=== PATIENT | female | born 1980 | race American Indian/Alaskan Native ===

== ENCOUNTER 2017-01-16 11:38 | Emergency (ER) | payer SELFPAY ==
[2017-01-16 12:20] LABS: Basophils % (Auto) 0.8 % (0.0-1.8); Eosinophils % (Auto) 2.7 % (0.0-4.3); Hematocrit 38.2 % (30.3-42.9); Hemoglobin 12.1 gm/dl (10.1-14.3); Mean Corpuscular HGB Conc 32 % (30-34); Mean Corpuscular Volume 80 fl (79-97); Platelet Count 287 K/mm3 (140-440); Red Blood Count 4.78 M/mm3 (3.65-5.03); Red Cell Distribution Width 16.6 % (13.2-15.2); White Blood Count 6.9 K/mm3 (4.5-11.0)
[2017-01-16 12:34] LABS: Mean Corpuscular Hemoglobin 25 pg (28-32)
[2017-01-16 12:36] LABS: Alanine Aminotransferase 14 units/L (7-56); Albumin 4.3 g/dL (3.9-5); Albumin/Globulin Ratio 1.3 %; Alkaline Phosphatase 77 units/L (35-129); Anion Gap 18 mmol/L; Bilirubin,Total < 0.20 mg/dL (0.1-1.2); Blood Urea Nitrogen 8 mg/dL (7-17); Carbon Dioxide 22 mmol/L (22-30); Chloride 104.3 mmol/L (98-107); Glucose 105 mg/dL (65-100); Lipase 37 units/L (13-60); Potassium 4.3 mmol/L (3.6-5.0); Sodium 140 mmol/L (137-145); Total Protein 7.5 g/dL (6.3-8.2)
[2017-01-16 13:53] LABS: Bilirubin,Urine NEG (Negative); Blood,Urine MOD (Negative); Ketones,Urine NEG (Negative); Leukocyte Esterase,Urine TR (Negative); Mucus,Urine 2+ /HPF; Nitrite,Urine NEG (Negative); Protein,Urine <15 mg/dL mg/dL (Negative); Urobilinogen,Urine < 2.0 mg/dL (<2.0)
[2017-01-16 17:44] VITALS: BP 135/119
== END 2017-01-16 20:45 | disposition left against medical advice (07) ==
LOC: ED 11:38
DX: R10.32 Left lower quadrant pain (principal); Z53.21 Procedure and treatment not carried out due to patient leaving prior to being seen by health care provider
CPT/HCPCS: 36415; 80053; 81001; 81025; 83690; 85025

== ENCOUNTER 2017-01-19 09:15 | Emergency (ER) | payer SELFPAY ==
[2017-01-19 09:21] VITALS: BP 147/124
[2017-01-19 10:44] LABS: Basophils % (Auto) 0.7 % (0.0-1.8); Eosinophils % (Auto) 2.6 % (0.0-4.3); Hematocrit 38.8 % (30.3-42.9); Hemoglobin 12.2 gm/dl (10.1-14.3); Mean Corpuscular HGB Conc 32 % (30-34); Mean Corpuscular Volume 81 fl (79-97); Platelet Count 285 K/mm3 (140-440); Red Cell Distribution Width 16.8 % (13.2-15.2); White Blood Count 7.6 K/mm3 (4.5-11.0)
[2017-01-19 10:46] LABS: Mean Corpuscular Hemoglobin 26 pg (28-32)
[2017-01-19 11:01] LABS: Alanine Aminotransferase 14 units/L (7-56); Albumin 4.5 g/dL (3.9-5); Albumin/Globulin Ratio 1.4 %; Alkaline Phosphatase 80 units/L (35-129); Anion Gap 17 mmol/L; Blood Urea Nitrogen 8 mg/dL (7-17); Carbon Dioxide 24 mmol/L (22-30); Chloride 102.8 mmol/L (98-107); Glucose 99 mg/dL (65-100); Lipase 38 units/L (13-60); Sodium 140 mmol/L (137-145); Total Protein 7.8 g/dL (6.3-8.2)
--- NOTE | 2017-01-21 07:39 | ED Elopement Review ---
ED Pt Elopement review - Results review Lab results: Laboratory Tests 01/19/17 01/19/17 01/19/17 10:23 10:23 10:23 WBC 7.6 RBC 4.80 Hgb 12.2 Hct 38.8 MCV 81 MCH 26 L MCHC 32 RDW 16.8 H Plt Count 285 Lymph % (Auto) 20.7 [place] % (Auto) 7.3 Eos % (Auto) 2.6 Baso % (Auto) 0.7 Lymph # 1.6 [place] # 0.6 Eos # 0.2 Baso # 0.1 Seg Neutrophils % 68.7 Seg Neutrophils # 5.2 Sodium 140 Potassium 4.0 Chloride 102.8 Carbon Dioxide 24 Anion Gap 17 BUN 8 Creatinine 0.8 Estimated GFR > 60 BUN/Creatinine Ratio 10.00 Glucose 99 Calcium 9.0 Total Bilirubin 0.20 AST 17 ALT 14 Alkaline Phosphatase 80 Total Protein 7.8 Albumin 4.5 Albumin/Globulin Ratio 1.4 Lipase 38 HCG, Qual Negative - Call Back decision Pt Call Back Decision: No action required
== END 2017-01-19 10:35 | disposition left against medical advice (07) ==
LOC: ED 09:15
DX: R10.9 Unspecified abdominal pain (principal); Z53.21 Procedure and treatment not carried out due to patient leaving prior to being seen by health care provider
CPT/HCPCS: 36415; 80053; 83690; 84703; 85025

== ENCOUNTER 2017-07-23 09:25 | Emergency (ER) | payer MEDICAID, OTHER ==
[2017-07-23 09:57] LABS: Basophils % (Auto) 0.7 % (0.0-1.8); Eosinophils % (Auto) 3.6 % (0.0-4.3); Hematocrit 36.2 % (30.3-42.9); Hemoglobin 11.9 gm/dl (10.1-14.3); Mean Corpuscular HGB Conc 33 % (30-34); Mean Corpuscular Volume 79 fl (79-97); Platelet Count 259 K/mm3 (140-440); Red Blood Count 4.58 M/mm3 (3.65-5.03); Red Cell Distribution Width 19.5 % (13.2-15.2); White Blood Count 6.5 K/mm3 (4.5-11.0)
[2017-07-23 09:59] LABS: Mean Corpuscular Hemoglobin 26 pg (28-32)
[2017-07-23 12:26] LABS: Bilirubin,Urine NEG (Negative); Blood,Urine LG (Negative); Ketones,Urine NEG (Negative); Leukocyte Esterase,Urine NEG (Negative); Mucus,Urine FEW /HPF; Nitrite,Urine NEG (Negative); Urobilinogen,Urine < 2.0 mg/dL (<2.0)
--- NOTE | 2017-07-23 13:29 | Ultrasound Report ---
FINAL REPORT PROCEDURE: US OB < = 14 WEEKS FETUS TECHNIQUE: Real-time transabdominal sonography of the uterus, placenta, amniotic fluid, adnexa, and fetus was performed with image documentation. Measurements were obtained to determine age/size. M-mode Doppler was used to document heartbeat. CPT 25727 HISTORY: Vaginal bleeding during COMPARISON: None FINDINGS: The uterus measures 13.7 x 8.8 x 10.2 centimeters. There is an intrauterine gestation. BPD, femur length, and crown-rump length measurements together suggests an expected gestational age of 13 weeks 0 days. heart rate of 158 beats per minute was noted. There is no free fluid or subchorionic hemorrhage. The right ovary measured 4.2 x 2.5 x 3.3 centimeters and the left ovary measured 4.0 x 2.4 x 3.4 centimeters. Complex cyst of the right ovary 2.1 x 1.3 x 1.8 centimeters is present as well as of the left ovary 1.6 x 1.9 x 1.5 centimeters. There is normal blood flow to both ovaries. Amniotic fluid volume appears appropriate. IMPRESSION: Single live intrauterine gestation at approximately 13 weeks 0 days. EDC by US 01/28/2018. Benign appearing cysts of both ovaries.
[2017-07-23 13:58] VITALS: BP 113/75
== END 2017-07-23 15:56 | disposition left against medical advice (07) ==
LOC: ED 09:25
DX: O20.9 Hemorrhage in early pregnancy, unspecified (principal); Z3A.12 12 weeks gestation of pregnancy; Z53.21 Procedure and treatment not carried out due to patient leaving prior to being seen by health care provider
CPT/HCPCS: 36415; 76801; 81001; 81025; 84702; 85025; 86850; 86900; 86901

== ENCOUNTER 2018-01-16 11:01 | Outpatient (CLI) | payer OTHER ==
[2018-01-16 11:20] VITALS: BP 130/85
[2018-01-16] MEDS ORDERED: LACTATED RINGERS 1,000 ML IV SCH (12:00)
== END 2018-01-16 13:00 | disposition home or self-care (01) ==
LOC: TRG 11:01
PROVIDERS: ATTEND Obstetrics & Gynecology
DX: O09.523 Supervision of elderly multigravida, third trimester (principal); O47.1 False labor at or after 37 completed weeks of gestation; Z3A.37 37 weeks gestation of pregnancy

== ENCOUNTER 2018-01-30 00:38 | Outpatient (CLI) | payer OTHER ==
[2018-01-30 00:58] VITALS: BP 145/88
== END 2018-01-30 03:45 | disposition home or self-care (01) ==
LOC: TRG 00:38
PROVIDERS: ATTEND Obstetrics & Gynecology
DX: O47.1 False labor at or after 37 completed weeks of gestation (principal); Z3A.39 39 weeks gestation of pregnancy; Z87.891 Personal history of nicotine dependence
CPT/HCPCS: 59025

== ENCOUNTER 2018-02-03 10:03 | Inpatient (IN) | payer OTHER ==
[2018-02-03] MEDS ORDERED: MINERAL OIL PO PRN (11:09)
[2018-02-03] MEDS ORDERED: STADOL IV PRN (11:09)
[2018-02-03] MEDS ORDERED: ePHEDrine SULFATE IV PRN (11:09)
[2018-02-03] MEDS ORDERED: POLYCILLIN/NS 2 GM/100 ML 2 GM/100 ML BAG IV ONE (11:09)
[2018-02-03] MEDS ORDERED: BRETHINE SUB-Q PRN (11:09)
[2018-02-03] MEDS ORDERED: BRETHINE IVP PRN (11:09)
[2018-02-03] MEDS ORDERED: SUBLIMAZE IV PRN (11:09)
[2018-02-03] MEDS ORDERED: XYLOCAINE 2% INFILTRATI ONE (11:09)
[2018-02-03] MEDS ORDERED: PITOCin/NS 30 UNIT/500ML 30 UNITS/500 ML BAG IV SCH ×2 (12:00)
[2018-02-03] MEDS ORDERED: PITOCin/NS 20 UNIT/1000ML DRIP 20 UNITS/1,000 ML BAG IV SCH ×2 (12:00→22:48)
[2018-02-03] MEDS ORDERED: LACTATED RINGERS 1,000 ML IV SCH (12:00)
--- NOTE | 2018-02-03 13:02 | History and Physical Report ---
History of Present Illness Date of examination: 02/03/18 Date of admission: 02/03/18 10:03 History of present illness: 37 yo LMP 02/04/18 @ 39.6 weeks gestation, presented to office advanced cervical dilatation and SROM. Entry into care at 13 weeks gestation. course complicated by AMA with APA comang't, HSV2 with Valtrex at 35 weeks, Circumvallate placenta with AMFM coman't and GBS carrier. 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 Family/Genetic History: diabetes, hypertension Social history: no significant social history, single - Obstetrical History Expected Date of Delivery: 02/04/18 Actual Gestation: 39 Week(s) 6 Day(s) : 8 Para: 6 Hx # Term Pregnancies: 6 Spontaneous Abortions: 2 Number of Living Children: 6 Medications and Allergies Allergies Allergy/AdvReac Type Severity Reaction Status Date / Time No Known Allergies Allergy Verified 07/23/17 09:37 Home Medications Medication Instructions Recorded Confirmed Last Taken Type No Known Home Medications [No 07/23/17 02/03/18 Unknown History Reported Home Medications] Active Meds: Active Medications Butorphanol Tartrate (Stadol) 2 mg IV Q2H PRN PRN Reason: Pain , Severe (7-10) Ephedrine Sulfate (Ephedrine Sulfate) 10 mg IV Q2M PRN PRN Reason: Hypotension Fentanyl (Sublimaze) 100 mcg IV Q2H PRN PRN Reason: Labor Pain Lactated Ringer's (Lactated Ringers) 1,000 mls @ 125 mls/hr IV DIRECT SUMI Oxytocin/Sodium Chloride (Pitocin/Ns 20 Unit/1000ml Drip) 20 units in 1,000 mls @ 125 mls/hr IV DIRECT SUMI Oxytocin/Sodium Chloride (Pitocin/Ns 30 Unit/500ml) 30 units in 500 mls @ 4 mls /hr IV TITR SUMI; Protocol Oxytocin/Sodium Chloride (Pitocin/Ns 30 Unit/500ml) 30 units in 500 mls @ 1 mls /hr IV TITR SUMI; Protocol Mineral Oil (Mineral Oil) 30 ml PO QHS PRN PRN Reason: Constipation Terbutaline Sulfate (Brethine) 0.25 mg SUB-Q ONCE PRN PRN Reason: Hyperstimulation/Hypertonicity Terbutaline Sulfate (Brethine) 0.25 mg IVP ONCE PRN PRN Reason: Hyperstimulation/Hypertonicity Review of Systems All systems: negative Breasts: deferred Genitourinary: normal appearance, leakage of fluid, contractions, no vaginal bleeding, no genital sores - Vital Signs Vital signs: Vital Signs Temp Resp 98.1 F 02/03/18 11:30 02/03/18 11:30 Temp Pulse Resp BP Pulse Ox 98.1 F 02/03/18 11:30 02/03/18 11:30 - Obstetrical FHR: category 1 Uterine Contraction Monitor Mode: External Cervical Dilatation: 3 Cervical Effacement Percentage: 60 station: -2 Uterine Contraction Pattern: Regular Uterine Tone Measurement Phase: Resting Uterine Contraction Intensity: Mild Results Result Diagrams: 02/03/18 10:55 All other labs normal. Assessment and Plan A: IUP at 38.6 weeks gestation PPROM at term GBS positive Anemia P: Abx Active induction
[2018-02-03 13:38] LABS: Hematocrit 28.1 % (30.3-42.9); Hemoglobin 8.9 gm/dl (10.1-14.3); Mean Corpuscular HGB Conc 32 % (30-34); Platelet Count 266 K/mm3 (140-440); Red Blood Count 4.24 M/mm3 (3.65-5.03)
[2018-02-03 13:39] LABS: Mean Corpuscular Hemoglobin 21 pg (28-32); Mean Corpuscular Volume 66 fl (79-97)
[2018-02-03] MEDS ORDERED: AMPICILLIN/NS 1 GM/50 ML 1 GM/50 ML BAG IV SCH (18:00)
--- NOTE | 2018-02-03 18:59 | Event Note ---
Date: 02/03/18 Pt very uncomfortable with contractions. Irregular contraction pattern. SVE: /-3. Continue pitocin augmentation. Closely monitor clinical status.
--- NOTE | 2018-02-03 21:09 | Procedure Note ---
OB Delivery Note - Delivery Date of Delivery: 02/03/18 Surgeon: NICKOLAS FELIX Estimated blood loss: 300cc - Vaginal Delivery presentation: vertex Delivery position: OA Intrapartum events: PROM->1hr before delivery, meconium, mult.variable deceleratio Delivery induction: none Delivery augmentation: pitocin Delivery monitor: external FHT, external uterine Route of delivery: Delivery placenta: spontaneous Delivery cord: nuchal cord, 3 umbilical vessels Episiotomy: none Delivery laceration: other (Perineal abrasions ) Anesthesia: intravenous Delivery comments: Pt progressed to complete/complete/0 and pushed to deliver a viable male over intact perineum via under IV anesthesia. Head delivered in WILLY position. Nuchal cord x 1 delivered through. Shoulders and body delivered without difficulty. Terminal meconium. placed on maternal abdomen and bulb suctioned. Cord clamped and cut and handed to RN in attendance. Placenta delivered spontaneously (3VC). Vagina and perineum explored. Vaginal abrasions noted to be hemostatic. EBL 300mL. - A at 1 minute: 8 at 5 minutes: 9 Infant Gender: Male (3656g (8lb 1 oz) @ 2044 pm)
[2018-02-03] MEDS ORDERED: MOTRIN PO ONE ×2 (21:30→21:39)
[2018-02-03] MEDS ORDERED: TUCKS PAD TP PRN (22:48)
[2018-02-03] MEDS ORDERED: PHENERGAN PR PRN (22:48)
[2018-02-03] MEDS ORDERED: LANSINOH TP PRN ×2 (22:48)
[2018-02-03] MEDS ORDERED: PHENERGAN PO PRN (22:48)
[2018-02-03] MEDS ORDERED: BENADRYL PO PRN (22:48)
[2018-02-03] MEDS ORDERED: ZOFRAN IV PRN (22:48)
[2018-02-03] MEDS ORDERED: DERMOPLAST TP PRN (22:48)
[2018-02-03] MEDS ORDERED: DULCOLAX PR PRN (22:48)
[2018-02-03] MEDS ORDERED: TYLENOL PO PRN (22:48)
[2018-02-03] MEDS ORDERED: NORCO 5/325 PO PRN (22:48)
[2018-02-03] MEDS ORDERED: SODIUM CHLORIDE FLUSH SYRINGE 10 ML IV NR (22:48)
[2018-02-03] MEDS ORDERED: MILK OF MAGNESIA PO PRN (22:48)
[2018-02-04] MEDS ORDERED: MOTRIN PO SCH
[2018-02-04] MEDS: FEOSOL PO SCH ×3 (00:17→22:03)
[2018-02-04] MEDS ORDERED: M-M-R II VACCINE SUB-Q ONE (06:00)
[2018-02-04] MEDS ORDERED: BOOSTRIX IM ONE (06:00)
[2018-02-04 09:06] LABS: Hematocrit 27.1 % (30.3-42.9); Hemoglobin 8.6 gm/dl (10.1-14.3)
--- NOTE | 2018-02-04 10:37 | Progress Note ---
Assessment and Plan A: ~12 hrs s/p at term, Chronic anemia P: Continue routine care. Subjective - Subjective Date of service: 02/04/18 Principal diagnosis: s/p at term Interval history: Pt has no complaints presently. Patient reports: appetite normal, voiding normally, pain well controlled, ambulating normally [place]: doing well Objective - Vital Signs Latest vital signs: Vital Signs Temp Pulse Resp BP Pulse Ox 02/04/18 08:00 98.3 F 89 18 129/84 97 02/04/18 04:15 98.2 F 83 20 120/78 02/04/18 01:10 98.2 F 96 H 20 117/79 02/03/18 21:38 97 H 20 120/68 02/03/18 21:21 108 H 20 115/65 02/03/18 21:12 98.0 F 110 H 20 129/72 02/03/18 19:14 97.2 F L 107 H 20 130/95 02/03/18 15:38 98.4 F 16 02/03/18 11:30 98.1 F 16 Intake and Output 02/03/18 02/04/18 02/04/18 22:59 06:59 14:59 Intake Total 390 300 Output Total 600 1000 Balance -210 -700 Intake: IV 30 PITOCin/NS 30 UNIT/500ML 30 30 units In 500 ml @ 4 mls/hr IV TITR SUMI Rx#: [id number] Oral 360 300 Output: Urine 600 1000 Void 600 1000 Other: Total, Intake Amount 360 100 Total, Output Amount 600 400 Estimated Blood Loss 300 - Exam Breasts: Present: deferred Cardiovascular: Present: Regular rate Lungs: Present: Clear to auscultation Abdomen: Present: soft (obese ) Uterus: Present: fundal height at umbilicus Extremities: Present: normal - Labs Labs: Abnormal lab results 02/03/18 02/04/18 Range/Units 10:55 08:48 Hgb 8.9 L 8.6 L (10.1-14.3) gm/dl Hct 28.1 L 27.1 L (30.3-42.9) % MCV 66 L (79-97) fl MCH 21 L (28-32) pg RDW 17.0 H (13.2-15.2) %
[2018-02-04] MEDS: MOTRIN PO SCH ×2 (13:45→22:04)
[2018-02-04 20:04] LABS: Hematocrit 27.4 % (30.3-42.9); Hemoglobin 8.8 gm/dl (10.1-14.3); Mean Corpuscular HGB Conc 32 % (30-34); Platelet Count 273 K/mm3 (140-440); Red Blood Count 4.15 M/mm3 (3.65-5.03); Red Cell Distribution Width 16.8 % (13.2-15.2)
[2018-02-04 20:05] LABS: Mean Corpuscular Hemoglobin 21 pg (28-32); Mean Corpuscular Volume 66 fl (79-97)
[2018-02-04 20:31] LABS: Alanine Aminotransferase 12 units/L (7-56); Uric Acid 3.6 mg/dL (3.5-7.6)
[2018-02-04 20:56] LABS: Bilirubin,Urine NEG (Negative); Blood,Urine LG (Negative); Color,Urine Yellow (Yellow); Mucus,Urine FEW /HPF; Urobilinogen,Urine < 2.0 mg/dL (<2.0)
[2018-02-04 20:58] LABS: RBC,Urine > 182.0 /HPF (0.0-6.0)
[2018-02-05] MEDS ORDERED: NORMODYNE PO SCH (11:00)
[2018-02-05 11:20] VITALS: BP 130/78
--- NOTE | 2018-02-05 14:03 | Progress Note ---
Assessment and Plan o; Mildly elevated earlier, NL now A: stable PP Day 1 P: D/c home Subjective - Subjective Date of service: 02/05/18 Principal diagnosis: s/p at term Interval history: 37 yo LMP 02/04/18 @ 39.6 weeks gestation, presented to office advanced cervical dilatation and SROM. Entry into care at 13 weeks gestation. course complicated by AMA with APA comang't, HSV2 with Valtrex at 35 weeks, Circumvallate placenta with AMFM coman't and GBS carrier. Patient reports: appetite normal, voiding normally, pain well controlled, flatus , ambulating normally, other (denies PIH S&S. Concenrned about right eye of not opening) [place]: doing well, nursing well Objective - Vital Signs Latest vital signs: Vital Signs Temp Pulse Resp BP BP Pulse Ox 02/05/18 09:10 98.0 F 89 18 130/78 99 02/05/18 00:00 98.6 F 78 18 104/68 02/04/18 18:42 143/94 02/04/18 17:36 98.1 F 86 18 148/95 148/95 98 Intake and Output 02/04/18 02/05/18 02/05/18 22:59 06:59 14:59 Intake Total 240 Balance 240 Intake: Oral 240 Other: Total, Intake Amount 240 # Voids Void 1 - Exam Breasts: Present: deferred Abdomen: Present: normal appearance. Absent: distention, tenderness Uterus: Present: normal, firm, fundal height below umbilicus. Absent: bogginess , tenderness Extremities: Present: normal - Labs Labs: Abnormal lab results 02/04/18 02/04/18 02/04/18 Range/Units 19:48 19:48 20:17 Hgb 8.8 L (10.1-14.3) gm/dl Hct 27.4 L (30.3-42.9) % MCV 66 L (79-97) fl MCH 21 L (28-32) pg RDW 16.8 H (13.2-15.2) % Creatinine 0.6 L (0.7-1.2) mg/dL Lactate Dehydrogenase 236 H (91-180) units/L Urine WBC (Auto) 28.0 H (0.0-6.0) /HPF
--- NOTE | 2018-02-05 14:05 | Discharge Summary ---
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] Routine Reason For Exam: assistance with , SNS Primary care physician: NICKOLAS FELIX Hospitalization Reason for admission: active labor, IUP at term Delivery: Episiotomy: none Laceration: none Other procedures: none Discharge diagnosis: IUP at term delivered [place] baby: male Condition at discharge: Good Disposition: DC-01 TO HOME OR SELFCARE Plan - Discharge Medications Prescriptions: Docusate Sodium [Colace] 100 mg PO BID PRN #60 capsule PRN Reason: Constipation Ferrous Sulfate [Feosol 325 MG tab] 325 mg PO TID #90 tablet HYDROcodone/ACETAMINOPHEN [[place] 5-325 Tablet] 1 each PO Q6H PRN #20 tablet PRN Reason: Pain Ibuprofen [Motrin] 800 mg PO Q8HR PRN #30 tablet PRN Reason: Pain - Provider Discharge Summary Activity: routine, no sex for 6 weeks, no heavy lifting 4 weeks, no strenuous exercise Diet: routine Instructions: routine Additional instructions: [] Smoking cessation referral if applicable(refer to patient education folder for contact #) [] Refer to [facility]'s [facility] Booklet Call your doctor immediately for: * Fever > 100.5 * Heavy vaginal bleeding ( >1 pad per hour) * Severe persistent headache * Shortness of breath * Reddened, hot, painful area to leg or breast * Drainage or odor from incision. * Keep incision clean and dry at all times and follow doctor's instructions regarding bathing/showering - Follow up plan Follow up: NICKOLAS FELIX MD [Primary Care Provider] - 7 Days (RTO 1 one week BP check and circumcision)
[2018-02-05] MEDS ORDERED: DEPO-PROVERA (CONTRACEPTION) IM ONE (16:00)
== END 2018-02-05 16:05 | disposition home or self-care (01) | DRG 774 ==
LOC: LD 10:03 → OB 22:23
PROVIDERS: ADMIT Obstetrics & Gynecology; ATTEND Obstetrics & Gynecology
PROC: 10E0XZZ Delivery of Products of Conception, External Approach (ICD-10-PCS; principal; 2018-02-03)
PROC: 3E0234Z Introduction of Serum, Toxoid and Vaccine into Muscle, Percutaneous Approach (ICD-10-PCS; 2018-02-04)
DX: O99.824 Streptococcus B carrier state complicating childbirth (principal); O98.52 Other viral diseases complicating childbirth; O99.02 Anemia complicating childbirth; D64.9 Anemia, unspecified; O77.0 Labor and delivery complicated by meconium in amniotic fluid; O69.81X0 Labor and delivery complicated by cord around neck, without compression, not applicable or unspecified; O71.82 Other specified trauma to perineum and vulva; O76 Abnormality in fetal heart rate and rhythm complicating labor and delivery; O42.02 Full-term premature rupture of membranes, onset of labor within 24 hours of rupture; Z23 Encounter for immunization; Z37.0 Single live birth; Z3A.39 39 weeks gestation of pregnancy; Z90.49 Acquired absence of other specified parts of digestive tract; Z83.3 Family history of diabetes mellitus; Z82.49 Family history of ischemic heart disease and other diseases of the circulatory system; B00.9 Herpesviral infection, unspecified
CPT/HCPCS: 36415; 81001; 82565; 83615; 84450; 84460; 84550; 85014; 85018; 85027; 86592; 86850; 86900; 86901; 99211; G0463; J0290; J0595; J1050; J2590; J3010; J7120; Q0169

== ENCOUNTER 2019-06-21 23:30 | Inpatient (IN) | payer OTHER ==
[2019-06-22] MEDS ORDERED: LACTATED RINGERS 1,000 ML IV SCH (01:00)
[2019-06-22] MEDS ORDERED: CALCIUM GLUCONATE IV ONE (01:15)
[2019-06-22] MEDS: APRESOLINE IV PRN ×2 (01:32→02:09)
[2019-06-22] MEDS: LACTATED RINGERS 1,000 ML IV SCH ×2 (01:32→03:26)
[2019-06-22 02:04] LABS: Alanine Aminotransferase 13 units/L (7-56)
[2019-06-22 02:32] LABS: Hematocrit 31.8 % (30.3-42.9); Hemoglobin 10.5 gm/dl (10.1-14.3); Mean Corpuscular HGB Conc 33 % (30-34); Mean Corpuscular Volume 72 fl (79-97); Platelet Count 264 K/mm3 (140-440); Red Blood Count 4.39 M/mm3 (3.65-5.03); Red Cell Distribution Width 16.1 % (13.2-15.2); Uric Acid 3.4 mg/dL (3.5-7.6)
[2019-06-22 02:50] LABS: Bilirubin,Urine NEG (Negative); Blood,Urine NEG (Negative); Color,Urine Straw (Yellow); Protein,Urine <15 mg/dL mg/dL (Negative); Urobilinogen,Urine < 2.0 mg/dL (<2.0); WBC,Urine < 1.0 /HPF (0.0-6.0)
[2019-06-22] MEDS ORDERED: MAGNESIUM SULFATE 4GM/100ML 4 GM/100 ML BAG IV ONE (02:54)
[2019-06-22] MEDS: MAGNESIUM SULFATE 40GM/1000ML 40 GM/1,000 ML BAG IV SCH (03:46)
[2019-06-22] MEDS: TYLENOL PO PRN ×3 (05:04→20:25)
[2019-06-22] MEDS ORDERED: CELESTONE SOLUSPAN IM ONE ×2 (05:30→09:00)
--- NOTE | 2019-06-22 07:52 | Ultrasound Report ---
ULTRASOUND BIOPHYSICAL PROFILE INDICATION: IUP at 36 wks, htn. Gestational hypertension COMPARISON: None available. FINDINGS: heart rate is 145 beats per minute. breathing movement = 2 Gross body movement = 2 tone = 2 Qualitative amniotic fluid volume = 2 IMPRESSION: biophysical profile = 04/08 Signer Name: Jasbir Carvalho Jr, MD Signed: 06/22/2019 7:48 AM Workstation Name: [id number]
--- NOTE | 2019-06-22 07:56 | Ultrasound Report ---
OB ULTRASOUND >= 14 WEEKS FETUS INDICATION: IUP at 36 wks, htn. Gestational hypertension. COMPARISON: None FINDINGS: A single gestation intrauterine is present with cephalic presentation. The placenta is post erior, grade 2 and free of the cervical os. heart tones measure 125 bpm. The cervix measures 2 .5 cm. Amniotic fluid volume is normal with a fluid index of 17.7. The spine, diaphragm, umbilical cord, cord insertion, stomach, kidneys, and bladder show no son ographic abnormality. There is poor visualization of the neuroantomy and four-chamber heart. Biparietal diameter is 8.2 cm which equals 33 weeks 0 days. Head circumference is 31.1 cm which equals 34 weeks 5 days. Abdominal circumference is 32.1 cm which equals 36 weeks 0 days. Femur length is 7.1 cm which equals 36 weeks 2 days. Overall estimated sonographic age is 35 weeks 0 days. EDC: 07/27/2019. HC/AC ratio: 0.97 Cephalic index: 84.2 Estimated weight: 2730 g +/- 4 104 g. 24th percentile.. IMPRESSION: Viable single intrauterine as described. No acute abnormality is detected. Poor visualization of the intracranial structures and four-chamber heart on anatomical survey. Signer Name: Jasbir Carvalho Jr, MD Signed: 06/22/2019 7:52 AM Workstation Name: [id number]
[2019-06-22 08:03] LABS: Amphetamine Screen,Urine PRESUMPTIVE NEGATIVE; Benzodiazepines Screen,Urine PRESUMPTIVE NEGATIVE; Cannabinoid Screen,Urine PRESUMPTIVE NEGATIVE; Cocaine Screen,Urine PRESUMPTIVE NEGATIVE; Methadone Screen,Urine PRESUMPTIVE NEGATIVE; Opiate Screen,Urine PRESUMPTIVE NEGATIVE
--- NOTE | 2019-06-22 12:16 | History and Physical Report ---
History of Present Illness Date of examination: 06/22/19 Date of admission: 06/22/19 01:42 Chief complaint: This is a 39 yo at 36+6 weeks here for elevated BP. She has only had 2 visits at [facility] last visit 25 weeks. History of present illness: here for BP elevation Past History Past Medical History: no pertinent history Past Surgical History: no surgical history, cholecystectomy (2011) Family/Genetic History: diabetes Social history: single. denies: smoking, alcohol abuse, prescription drug abuse - Obstetrical History : 9 Medications and Allergies Allergies Allergy/AdvReac Type Severity Reaction Status Date / Time No Known Allergies Allergy Verified 07/23/17 09:37 Home Medications Medication Instructions Recorded Confirmed Last Taken Type Docusate Sodium [Colace] 100 mg PO BID PRN #60 capsule 02/04/18 Unknown Rx Ferrous Sulfate [Feosol 325 MG tab] 325 mg PO TID #90 tablet 02/04/18 Unknown Rx HYDROcodone/ACETAMINOPHEN [[place] 1 each PO Q6H PRN #20 tablet 02/04/18 Unknown Rx 5-325 Tablet] Ibuprofen [Motrin] 800 mg PO Q8HR PRN #30 tablet 02/04/18 Unknown Rx Active Meds: Active Medications Acetaminophen (Tylenol) 650 mg PO Q4H PRN PRN Reason: Pain, Mild (1-3) Last Admin: 06/22/19 08:56 Dose: 650 mg Documented by: Hydralazine HCl (Apresoline) 5 mg IV Q30MIN PRN PRN Reason: Hypertension Last Admin: 06/22/19 02:09 Dose: 5 mg Documented by: Lactated Ringer's (Lactated Ringers) 1,000 mls @ 125 mls/hr IV DIRECT SUMI Last Admin: 06/22/19 03:26 Dose: 125 mls/hr Documented by: Magnesium Sulfate (Magnesium Sulfate 40gm/1000ml) 40 gm in 1,000 mls @ 50 mls/hr IV DIRECT SUMI Last Infusion: 06/22/19 11:10 Dose: 1 gm/hr, 25 mls/hr Documented by: Review of Systems All systems: negative - Vital Signs Vital signs: Vital Signs Pulse BP 100 H 165/110 06/21/19 23:47 06/21/19 23:47 Temp Pulse Resp BP Pulse Ox 98.0 F 80 18 116/78 92 06/22/19 08:00 06/22/19 11:56 06/22/19 05:04 06/22/19 11:56 06/22/19 08:52 - Physical Exam Breasts: Positive: normal Cardiovascular: Regular rate, Normal S1 Lungs: Positive: Clear to auscultation, Normal air movement Abdomen: Positive: normal appearance, soft, normal bowel sounds. Negative: distention, tenderness, guarding Genitourinary (Female): Positive: normal external genitalia, normal perenium Vulva: both: normal Anus/Rectum: Positive: normal perianal skin Extremities: Positive: normal Deep Tendon Reflex Grade: Normal +2 - Obstetrical FHR: category 1 Results Result Diagrams: 06/22/19 01:20 06/22/19 01:20 Abnormal lab results 06/22/19 06/22/19 06/22/19 Range/Units 01:00 01:20 01:20 MCV 72 L (79-97) fl MCH 24 L (28-32) pg RDW 16.1 H (13.2-15.2) % Creatinine 0.6 L (0.7-1.2) mg/dL Uric Acid 3.4 L (3.5-7.6) mg/dL Magnesium (1.7-2.3) mg/dL Lactate Dehydrogenase 241 H (91-180) units/L Ur Specific [place] 1.002 L (1.003-1.030) 06/22/19 Range/Units 10:54 MCV (79-97) fl MCH (28-32) pg RDW (13.2-15.2) % Creatinine (0.7-1.2) mg/dL Uric Acid (3.5-7.6) mg/dL Magnesium 6.00 H (1.7-2.3) mg/dL Lactate Dehydrogenase (91-180) units/L Ur Specific [place] (1.003-1.030) All other labs normal. Assessment and Plan A/P HD#1 36+6 weeks Elevated BP - suspect severe on mag last level 6 decreased mag to 1g/hr consult with MFM- awaiting recommnedations US ordered- BPP 04/08 [place] 17 EFW 24% non compliant- refused BMZ, took herself off monitor -discussed need to follow our recommendations and hospital policy NICCU consult close monitor of maternal and status
--- NOTE | 2019-06-22 12:46 | Consultation ---
History of Present Illness Consult date: 06/22/19 Reason for consult: gestational hypertension History of present illness: Ms. Coker is a 39 yo pt who is noncompliant with care appointments and [facility] appointments. She was seen one time in [facility] office on 03/15/2019 for an anatomy scan and AMA diagnosis. She presented to [facility] on 06/21/19 due to contractions. Upon assessment, elevated blood pressures noted- 140s-180s/100s. She was treated with prn Hydralazine 5mg IV x 2. BP's now controlled. Pt is currently receiving Magnesium sulfate. She has refused proper monitoring while hospitalized and Betamethasone administration. She complains of headaches. She denies visual disturbances, RUQ pain, and edema. 24 hour urine in progress. She admits to positive movements. She denies regular contractions, leaking of fluid, and bleeding. Past History Past Medical History: no pertinent history Past Surgical History: cholecystectomy (2011) Family/Genetic History: diabetes - Obstetrical History : 9 Medications and Allergies Allergies Allergy/AdvReac Type Severity Reaction Status Date / Time No Known Allergies Allergy Verified 07/23/17 09:37 Home Medications Medication Instructions Recorded Confirmed Last Taken Type Docusate Sodium [Colace] 100 mg PO BID PRN #60 capsule 02/04/18 Unknown Rx Ferrous Sulfate [Feosol 325 MG tab] 325 mg PO TID #90 tablet 02/04/18 Unknown Rx HYDROcodone/ACETAMINOPHEN [[place] 1 each PO Q6H PRN #20 tablet 02/04/18 Unknown Rx 5-325 Tablet] Ibuprofen [Motrin] 800 mg PO Q8HR PRN #30 tablet 02/04/18 Unknown Rx Active Meds: Active Medications Acetaminophen (Tylenol) 650 mg PO Q4H PRN PRN Reason: Pain, Mild (1-3) Last Admin: 06/22/19 08:56 Dose: 650 mg Documented by: Hydralazine HCl (Apresoline) 5 mg IV Q30MIN PRN PRN Reason: Hypertension Last Admin: 06/22/19 02:09 Dose: 5 mg Documented by: Lactated Ringer's (Lactated Ringers) 1,000 mls @ 125 mls/hr IV DIRECT SUMI Last Admin: 06/22/19 03:26 Dose: 125 mls/hr Documented by: Magnesium Sulfate (Magnesium Sulfate 40gm/1000ml) 40 gm in 1,000 mls @ 50 mls/hr IV DIRECT SUMI Last Infusion: 06/22/19 11:10 Dose: 1 gm/hr, 25 mls/hr Documented by: Review of Systems Constitutional: other (denies fatigue, chills, fever) Eyes: other (denies visual disturbances) Ears, nose, mouth and throat: deferred Cardiovascular: other (denies chest pain, edema, palpitations) Respiratory: other (denies SOB, wheezing, coughing) Breasts: deferred Gastrointestinal: other (denies nausea, RUQ pain, diarrhea, and constipation) Genitourinary: other (denies contractions, leaking of fluid, and vaginal bleedin g) Rectal Exam: deferred Neurological: headaches - Vital Signs Vital signs: Vital Signs Pulse BP 100 H 165/110 06/21/19 23:47 06/21/19 23:47 Temp Pulse Resp BP Pulse Ox 98.0 F 82 18 123/76 92 06/22/19 08:00 06/22/19 12:12 06/22/19 05:04 06/22/19 12:12 06/22/19 08:52 - Physical Exam Breasts: Positive: deferred Cardiovascular: Regular rate, Normal S1, Normal S2 Lungs: Positive: Clear to auscultation, Normal air movement Abdomen: Positive: soft, other (gravid, nontender) Deep Tendon Reflex Grade: Normal +2 Results Result Diagrams: 06/22/19 01:20 06/22/19 01:20 Abnormal lab results 06/22/19 06/22/19 06/22/19 Range/Units 01:00 01:20 01:20 MCV 72 L (79-97) fl MCH 24 L (28-32) pg RDW 16.1 H (13.2-15.2) % Creatinine 0.6 L (0.7-1.2) mg/dL Uric Acid 3.4 L (3.5-7.6) mg/dL Magnesium (1.7-2.3) mg/dL Lactate Dehydrogenase 241 H (91-180) units/L Ur Specific [place] 1.002 L (1.003-1.030) 06/22/19 Range/Units 10:54 MCV (79-97) fl MCH (28-32) pg RDW (13.2-15.2) % Creatinine (0.7-1.2) mg/dL Uric Acid (3.5-7.6) mg/dL Magnesium 6.00 H (1.7-2.3) mg/dL Lactate Dehydrogenase (91-180) units/L Ur Specific [place] (1.003-1.030) All other labs normal. Assessment and Plan A- IUP 36.6 weeks gestation- LINDA 07/14/19 Noncompliant and Insufficient Care Magnesium Sulfate infusing Gestational Hypertension vs Preeclampsia 24 hour urine protein in progress Reports headache, Denies other PIH symptoms VSS Confirm LINDA used for inpatient ultrasound is 07/14/19 BPP 8/8 AMA Discussed patient's history and today's findings with Dr. Delong. Recommendations for delivery made today due to new diagnosis of Gestational Hypertension vs Preeclampsia. P- Continue with current plan of care Recommend delivery secondary to Gestational Hypertension Continuous monitoring Complete 24 hour urine protein Notify NICU as indicated For additional questions/concerns, please contact education coordinator KIRK MISTRY ( Dr. Delong ). Thank you for your consult.
--- NOTE | 2019-06-22 14:01 | Consultation ---
Consult Note - Parent Education Parent(s) demonstrated understanding of all the information:: Yes Additional Comment: Mother is P7, all term. We discussed prematurity and risk for respiratory complications, poor temperature regulation and need to monitor for hypoglycemia, jaundice, possible feeding difficulties with the possiblity of a feeding tube and/or IV fluids. At 36w 6d, baby is likely to transition well, however will evaluate and assess the need for NICU care after delivery. Assessment and Plan - Assessment Gestation:: 36 (36 weeks, 6 days) Estimated Weight: 2730g Baby's gender: Male Additional Comment: Consult requested by OB team for prematurity - Plan Plan: Will attend delivery if indicated Please call NICU with questions
[2019-06-22] MEDS ORDERED: NALOXONE IV PRN (15:26)
[2019-06-22] MEDS ORDERED: MINERAL OIL PO PRN (15:26)
[2019-06-22] MEDS ORDERED: AMPICILLIN/NS 2 GM/100 ML 2 GM/100 ML BAG IV ONE ×2 (15:26→18:49)
[2019-06-22] MEDS ORDERED: BRETHINE IVP PRN (15:26)
[2019-06-22] MEDS ORDERED: SUBLIMAZE IV PRN (15:26)
[2019-06-22] MEDS ORDERED: BRETHINE SUB-Q PRN (15:26)
[2019-06-22] MEDS ORDERED: ZOFRAN IV PRN (15:26)
[2019-06-22] MEDS ORDERED: XYLOCAINE 2% INFILTRATI ONE (15:26)
[2019-06-22] MEDS ORDERED: PHENERGAN PO PRN (15:26)
[2019-06-22] MEDS ORDERED: STADOL IV PRN (15:26)
[2019-06-22] MEDS ORDERED: PITOCin/NS 20 UNIT/1000ML DRIP 20 UNITS/1,000 ML BAG IV SCH (16:00)
[2019-06-22] MEDS ORDERED: PITOCin/NS 30 UNIT/500ML 30 UNITS/500 ML BAG IV SCH (16:00)
[2019-06-22] MEDS ORDERED: CERVIDIL VG ONE (16:26)
[2019-06-22 16:39] LABS: Hematocrit 29.1 % (30.3-42.9); Hemoglobin 9.7 gm/dl (10.1-14.3); Mean Corpuscular HGB Conc 33 % (30-34); Mean Corpuscular Volume 72 fl (79-97); Platelet Count 232 K/mm3 (140-440); Red Blood Count 4.04 M/mm3 (3.65-5.03); Red Cell Distribution Width 15.8 % (13.2-15.2)
--- NOTE | 2019-06-22 18:36 | Ultrasound Report ---
ULTRASOUND OBSTETRIC Indication: position Findings: There is a single, living intrauterine . The position is cephalic. heart motion is 123 bpm Impression: Cephalic presentation. Signer Name: Toribio Clark MD Signed: 06/22/2019 6:32 PM Workstation Name: [id number]
[2019-06-23] MEDS: AMPICILLIN/NS 1 GM/50 ML 1 GM/50 ML BAG IV SCH ×3 (04:39→20:51)
--- NOTE | 2019-06-23 08:12 | Progress Note ---
Assessment and Plan Preeclampsia, continue mag Sulfate and IOL Recheck cervix after Cervidil is removed Anticipate Subjective - Subjective Date of service: 06/23/19 Principal diagnosis: Day 2 of IOL for preeclampsia Interval history: Pt is a 39 yo grandmultip on day 2 of induction of labor for preeclampsia. She is 37.0 weeks EGA today. She has a cervidil in place x11 hours. No contractions, positive movement, no leaking fluid. Mag infusing. Patient reports: movement normal, no new complaints, no loss of fluid, no vaginal bleeding, no contractions Objective - Vital Signs Vital Signs: Vital Signs - 12hr 06/22/19 06/22/19 06/22/19 20:11 20:27 20:35 Pulse Rate 81 81 84 Blood Pressure 140/64 131/90 O2 Sat by Pulse 100 Oximetry 06/22/19 06/22/19 06/22/19 20:41 20:57 21:12 Pulse Rate 80 78 74 Blood Pressure 169/91 147/83 157/91 O2 Sat by Pulse Oximetry 06/22/19 06/22/19 06/22/19 21:22 21:27 21:32 Pulse Rate 88 86 79 Blood Pressure O2 Sat by Pulse 100 100 100 Oximetry 06/22/19 06/22/19 06/22/19 21:36 21:37 21:38 Pulse Rate 85 88 81 Blood Pressure 166/91 168/85 O2 Sat by Pulse 100 Oximetry 06/22/19 06/22/19 06/22/19 21:41 21:42 21:47 Pulse Rate 88 78 74 Blood Pressure 154/92 O2 Sat by Pulse 100 100 Oximetry 06/22/19 06/22/19 06/22/19 21:52 21:56 21:57 Pulse Rate 80 68 76 Blood Pressure 147/75 O2 Sat by Pulse 100 100 Oximetry 06/22/19 06/22/19 06/22/19 22:02 22:07 22:11 Pulse Rate 80 86 Blood Pressure 139/82 O2 Sat by Pulse 100 100 Oximetry 06/22/19 06/22/19 06/22/19 22:12 22:17 22:22 Pulse Rate 111 H 85 89 Blood Pressure O2 Sat by Pulse 100 100 100 Oximetry 06/22/19 06/22/19 06/22/19 22:26 22:27 22:32 Pulse Rate 86 94 H 86 Blood Pressure 140/67 O2 Sat by Pulse 100 100 Oximetry 06/22/19 06/22/19 06/22/19 22:37 22:42 22:47 Pulse Rate 79 83 76 Blood Pressure 123/75 O2 Sat by Pulse 100 98 100 Oximetry 06/22/19 06/22/19 06/22/19 22:52 22:56 22:57 Pulse Rate 79 78 88 Blood Pressure 128/77 O2 Sat by Pulse 100 100 Oximetry 06/22/19 06/22/19 06/22/19 23:02 23:07 23:11 Pulse Rate 77 72 71 Blood Pressure 131/73 O2 Sat by Pulse 100 100 Oximetry 06/22/19 06/22/19 06/22/19 23:12 23:17 23:22 Pulse Rate 71 70 76 Blood Pressure O2 Sat by Pulse 97 100 100 Oximetry 06/22/19 06/22/19 06/22/19 23:27 23:32 23:37 Pulse Rate 75 71 90 Blood Pressure 129/73 O2 Sat by Pulse 99 99 100 Oximetry 06/22/19 06/22/19 06/22/19 23:42 23:47 23:52 Pulse Rate 82 73 74 Blood Pressure O2 Sat by Pulse 99 100 100 Oximetry 06/22/19 06/23/19 06/23/19 23:57 00:02 00:07 Pulse Rate 67 75 72 Blood Pressure O2 Sat by Pulse 99 100 100 Oximetry 06/23/19 06/23/19 06/23/19 00:12 00:17 00:22 Pulse Rate 73 91 H 79 Blood Pressure 132/73 O2 Sat by Pulse 100 100 100 Oximetry 06/23/19 06/23/19 06/23/19 00:27 00:28 00:32 Pulse Rate 81 80 79 Blood Pressure 136/90 O2 Sat by Pulse 100 100 Oximetry 06/23/19 06/23/19 06/23/19 00:37 00:41 00:42 Pulse Rate 73 77 78 Blood Pressure 143/74 O2 Sat by Pulse 100 100 Oximetry 06/23/19 06/23/19 06/23/19 00:47 00:52 00:56 Pulse Rate 71 70 70 Blood Pressure 139/77 O2 Sat by Pulse 100 99 Oximetry 06/23/19 06/23/19 06/23/19 00:57 01:02 01:07 Pulse Rate 71 72 70 Blood Pressure O2 Sat by Pulse 100 100 100 Oximetry 06/23/19 06/23/19 06/23/19 01:11 01:12 01:17 Pulse Rate 70 72 81 Blood Pressure 136/77 O2 Sat by Pulse 100 100 Oximetry 06/23/19 06/23/19 06/23/19 01:22 01:27 01:32 Pulse Rate 68 69 68 Blood Pressure 132/82 O2 Sat by Pulse 100 98 99 Oximetry 06/23/19 06/23/19 06/23/19 01:37 01:41 01:42 Pulse Rate 69 72 76 Blood Pressure 127/77 O2 Sat by Pulse 100 100 Oximetry 06/23/19 06/23/19 06/23/19 01:47 01:52 01:57 Pulse Rate 77 71 75 Blood Pressure 133/86 O2 Sat by Pulse 100 100 100 Oximetry 06/23/19 06/23/19 06/23/19 02:02 02:07 02:11 Pulse Rate 71 68 67 Blood Pressure 132/83 O2 Sat by Pulse 100 99 Oximetry 06/23/19 06/23/19 06/23/19 02:12 02:17 02:22 Pulse Rate 72 77 75 Blood Pressure O2 Sat by Pulse 99 99 99 Oximetry 06/23/19 06/23/19 06/23/19 02:26 02:27 02:32 Pulse Rate 76 77 76 Blood Pressure 135/82 O2 Sat by Pulse 99 99 Oximetry 06/23/19 06/23/19 06/23/19 02:37 02:41 02:42 Pulse Rate 78 74 75 Blood Pressure 136/79 O2 Sat by Pulse 99 99 Oximetry 06/23/19 06/23/19 06/23/19 02:47 02:52 02:56 Pulse Rate 81 79 75 Blood Pressure 140/84 O2 Sat by Pulse 100 99 Oximetry 06/23/19 06/23/19 06/23/19 02:57 03:02 03:07 Pulse Rate 77 77 82 Blood Pressure O2 Sat by Pulse 100 100 100 Oximetry 06/23/19 06/23/19 06/23/19 03:12 03:17 03:22 Pulse Rate 70 77 78 Blood Pressure 142/83 O2 Sat by Pulse 100 100 99 Oximetry 06/23/19 06/23/19 06/23/19 03:27 03:29 03:32 Pulse Rate 66 68 64 Blood Pressure 126/66 O2 Sat by Pulse 100 100 Oximetry 06/23/19 06/23/19 06/23/19 03:37 03:42 03:47 Pulse Rate 66 71 69 Blood Pressure 132/75 O2 Sat by Pulse 100 100 99 Oximetry 06/23/19 06/23/19 06/23/19 03:52 03:56 03:57 Pulse Rate 69 67 69 Blood Pressure 131/72 O2 Sat by Pulse 99 99 Oximetry 06/23/19 06/23/19 06/23/19 04:02 04:07 04:11 Pulse Rate 73 67 72 Blood Pressure 124/73 O2 Sat by Pulse 99 100 Oximetry 06/23/19 06/23/19 06/23/19 04:12 04:17 04:22 Pulse Rate 72 71 74 Blood Pressure O2 Sat by Pulse 100 100 100 Oximetry 06/23/19 06/23/19 06/23/19 04:26 04:27 04:32 Pulse Rate 77 77 82 Blood Pressure 126/79 O2 Sat by Pulse 100 100 Oximetry 06/23/19 06/23/19 06/23/19 04:37 04:41 04:42 Pulse Rate 72 77 76 Blood Pressure 141/88 O2 Sat by Pulse 100 100 Oximetry 06/23/19 06/23/19 06/23/19 04:47 04:52 04:57 Pulse Rate 73 71 71 Blood Pressure 144/93 O2 Sat by Pulse 100 100 100 Oximetry 06/23/19 06/23/19 06/23/19 05:02 05:07 05:11 Pulse Rate 83 83 73 Blood Pressure 148/91 O2 Sat by Pulse 100 100 Oximetry 06/23/19 06/23/19 06/23/19 05:12 05:17 05:22 Pulse Rate 81 68 72 Blood Pressure O2 Sat by Pulse 100 100 100 Oximetry 06/23/19 06/23/19 06/23/19 05:27 05:32 05:37 Pulse Rate 68 67 69 Blood Pressure 130/75 O2 Sat by Pulse 100 100 100 Oximetry 06/23/19 06/23/19 06/23/19 05:41 05:42 05:47 Pulse Rate 67 69 68 Blood Pressure 128/77 O2 Sat by Pulse 100 100 Oximetry 06/23/19 06/23/19 06/23/19 05:52 05:56 05:57 Pulse Rate 73 72 82 Blood Pressure 124/82 O2 Sat by Pulse 100 99 Oximetry 06/23/19 06/23/19 06/23/19 06:02 06:07 06:11 Pulse Rate 74 75 86 Blood Pressure 148/84 O2 Sat by Pulse 100 100 Oximetry 06/23/19 06/23/19 06/23/19 06:12 06:17 06:22 Pulse Rate 85 72 75 Blood Pressure O2 Sat by Pulse 100 100 100 Oximetry 06/23/19 06/23/19 06/23/19 06:26 06:27 06:32 Pulse Rate 77 73 75 Blood Pressure 141/93 O2 Sat by Pulse 100 100 Oximetry 06/23/19 06/23/19 06/23/19 06:37 06:42 06:43 Pulse Rate 73 72 71 Blood Pressure 125/69 O2 Sat by Pulse 100 100 Oximetry 06/23/19 06/23/19 06/23/19 06:47 06:52 06:56 Pulse Rate 69 74 81 Blood Pressure 121/80 O2 Sat by Pulse 100 100 Oximetry 06/23/19 06/23/19 06/23/19 06:57 07:02 07:07 Pulse Rate 73 73 74 Blood Pressure O2 Sat by Pulse 98 100 100 Oximetry 06/23/19 06/23/19 06/23/19 07:12 07:17 07:22 Pulse Rate 73 72 74 Blood Pressure 124/71 O2 Sat by Pulse 98 100 100 Oximetry 06/23/19 06/23/19 06/23/19 07:27 07:32 07:37 Pulse Rate 70 74 74 Blood Pressure 119/71 O2 Sat by Pulse 99 100 99 Oximetry 06/23/19 06/23/19 06/23/19 07:41 07:42 07:47 Pulse Rate 70 72 76 Blood Pressure 128/74 O2 Sat by Pulse 99 99 Oximetry 06/23/19 06/23/19 06/23/19 07:52 07:56 07:57 Pulse Rate 74 75 70 Blood Pressure 136/83 O2 Sat by Pulse 100 100 Oximetry 06/23/19 06/23/19 08:02 08:07 Pulse Rate 72 74 Blood Pressure O2 Sat by Pulse 100 100 Oximetry - Exam Lungs: Normal air movement Abdomen: Present: normal appearance, soft Uterus: Present: normal FHR: category 1 Uterine Contraction Monitor Mode: External Uterine Contraction Pattern: Absent - Labs Labs: Abnormal Labs 06/22/19 06/22/19 06/22/19 01:00 01:20 01:20 Hgb Hct MCV 72 L MCH 24 L RDW 16.1 H Creatinine 0.6 L Uric Acid 3.4 L Magnesium Lactate Dehydrogenase 241 H Ur Specific [place] 1.002 L Ur Total Protein 24 Hr Urine Total Protein 06/22/19 06/22/19 06/22/19 10:54 16:13 16:13 Hgb 9.7 L Hct 29.1 L MCV 72 L MCH 24 L RDW 15.8 H Creatinine Uric Acid Magnesium 6.00 H 5.50 H Lactate Dehydrogenase Ur Specific [place] Ur Total Protein 24 Hr Urine Total Protein 06/22/19 06/22/19 06/23/19 23:37 Unknown 05:57 Hgb Hct MCV MCH RDW Creatinine Uric Acid Magnesium 4.90 H 4.60 H Lactate Dehydrogenase Ur Specific [place] Ur Total Protein 24 Hr 517.50 H Urine Total Protein 15 H Laboratory Results - last 24 hr 06/22/19 06/22/19 06/22/19 01:00 01:20 10:54 WBC RBC Hgb Hct MCV MCH MCHC RDW Plt Count Magnesium 6.00 H Urine Total Volume Ur Total Protein 24 Hr Urine Total Protein Drugs of Abuse Note Disclamer Syphilis IgG Antibody Blood Type B POSITIVE Antibody Screen Negative 06/22/19 06/22/19 06/22/19 16:13 16:13 16:30 WBC 7.2 RBC 4.04 Hgb 9.7 L Hct 29.1 L MCV 72 L MCH 24 L MCHC 33 RDW 15.8 H Plt Count 232 Magnesium 5.50 H Urine Total Volume Ur Total Protein 24 Hr Urine Total Protein Drugs of Abuse Note Syphilis IgG Antibody Non-reactive Blood Type Antibody Screen 06/22/19 06/22/19 06/23/19 23:37 Unknown 05:57 WBC RBC Hgb Hct MCV MCH MCHC RDW Plt Count Magnesium 4.90 H 4.60 H Urine Total Volume 3450 Ur Total Protein 24 Hr 517.50 H Urine Total Protein 15 H Drugs of Abuse Note Syphilis IgG Antibody Blood Type Antibody Screen
[2019-06-23] MEDS ORDERED: CYTOTEC VG PRN (10:50)
[2019-06-23] MEDS: LACTATED RINGERS 1,000 ML IV SCH (18:29)
[2019-06-23] MEDS ORDERED: XYLOCAINE 2% INFILTRATI ONE (22:42)
[2019-06-24] MEDS: AMPICILLIN/NS 1 GM/50 ML 1 GM/50 ML BAG IV SCH ×4 (00:39→15:29)
[2019-06-24] MEDS: LACTATED RINGERS 1,000 ML IV SCH (10:02)
--- NOTE | 2019-06-24 12:49 | Event Note ---
Date: 06/24/19 Pt more uncomfortable with contractions. Cat II tracing. SVE: /-3. Attempt to perform AROM unsuccessful. Continue routine intrapartum care. Closely monitor maternal and status.
--- NOTE | 2019-06-24 17:43 | Procedure Note ---
OB Delivery Note - Delivery Date of Delivery: 06/24/19 Surgeon: NICKOLAS FELIX Estimated blood loss: other (400 mL) - Vaginal Delivery presentation: vertex Delivery position: OP (LOP) Intrapartum events: PROM->1hr before delivery, preeclampsia, decreased FHT variability, mult.variable deceleratio Delivery induction: cervidil Delivery augmentation: rupture of membranes, pitocin Delivery monitor: external FHT, external uterine Route of delivery: Delivery placenta: spontaneous Delivery cord: 3 umbilical vessels Episiotomy: none Delivery laceration: other (Perineal abrasions hemostatic without repair ) Anesthesia: intravenous - Infant A at 1 minute: 8 at 5 minutes: 9 Infant Gender: Male (2464g (5lb 6.9 oz) @ 1720 pm)
[2019-06-24] MEDS ORDERED: TUCKS PAD TP PRN (17:44)
[2019-06-24] MEDS ORDERED: PHENERGAN PO PRN (17:44)
[2019-06-24] MEDS ORDERED: PHENERGAN PR PRN (17:44)
[2019-06-24] MEDS ORDERED: NORCO 5/325 PO PRN (17:44)
[2019-06-24] MEDS ORDERED: LANSINOH TP PRN ×2 (17:44)
[2019-06-24] MEDS ORDERED: BENADRYL PO PRN (17:44)
[2019-06-24] MEDS ORDERED: DULCOLAX PR PRN (17:44)
[2019-06-24] MEDS ORDERED: TYLENOL PO PRN (17:44)
[2019-06-24] MEDS ORDERED: MILK OF MAGNESIA PO PRN (17:44)
[2019-06-24] MEDS ORDERED: DERMOPLAST TP PRN (17:44)
[2019-06-24] MEDS ORDERED: ZOFRAN IV PRN (17:44)
[2019-06-24] MEDS ORDERED: PITOCin/NS 20 UNIT/1000ML DRIP 20 UNITS/1,000 ML BAG IV SCH (18:00)
[2019-06-24] MEDS ORDERED: SODIUM CHLORIDE FLUSH SYRINGE 10 ML IV SCH (18:00)
[2019-06-24] MEDS: IBUPROFEN PO SCH ×2 (18:59→23:45)
[2019-06-24] MEDS: FEOSOL PO SCH (21:30)
[2019-06-24] MEDS: MAGNESIUM SULFATE 40GM/1000ML 40 GM/1,000 ML BAG IV SCH (21:31)
[2019-06-24] MEDS: COLACE PO SCH (21:31)
[2019-06-25] MEDS: LACTATED RINGERS 1,000 ML IV SCH ×2 (04:15→14:48)
[2019-06-25] MEDS: IBUPROFEN PO SCH ×4 (05:39→23:17)
[2019-06-25] MEDS ORDERED: BOOSTRIX IM ONE (06:00)
--- NOTE | 2019-06-25 07:34 | Progress Note ---
Assessment and Plan A/P PPD#1 s/p Pree E on magf last mag level 4 at 830 pm UOP appropriate continue mag until 5p trnasfer to MBU after Mag Subjective - Subjective Date of service: 06/25/19 Principal diagnosis: Day 2 of IOL for preeclampsia Interval history: here for BP elevation Patient reports: appetite normal, voiding normally, pain well controlled, flatus, ambulating normally : doing well Objective - Vital Signs Latest vital signs: Vital Signs Temp Pulse Resp BP BP Pulse Ox 06/25/19 07:23 66 122/68 06/25/19 07:08 65 126/69 06/25/19 06:53 69 137/73 06/25/19 06:38 69 130/67 06/25/19 06:23 66 144/73 06/25/19 06:08 63 128/68 06/25/19 05:53 73 143/69 06/25/19 05:39 20 06/25/19 05:38 66 127/66 06/25/19 05:23 69 129/64 06/25/19 05:08 69 147/82 06/25/19 04:53 76 141/91 06/25/19 04:38 67 146/90 06/25/19 04:23 64 149/90 06/25/19 04:08 63 154/81 06/25/19 03:53 61 168/82 06/25/19 03:08 65 143/69 06/25/19 02:53 61 143/70 06/25/19 02:39 62 142/85 06/25/19 02:24 60 136/67 06/25/19 02:08 68 139/78 06/25/19 01:38 61 130/65 06/25/19 01:23 64 135/75 06/25/19 01:08 64 139/81 06/25/19 00:53 63 160/95 06/25/19 00:23 63 142/73 06/25/19 00:08 57 L 142/67 06/24/19 23:53 71 169/90 06/24/19 23:51 98.0 F 18 06/24/19 23:45 20 06/24/19 23:39 61 166/74 06/24/19 23:09 68 169/90 06/24/19 22:38 80 127/75 06/24/19 22:23 71 126/69 06/24/19 22:08 63 125/67 06/24/19 21:38 68 140/84 06/24/19 21:23 68 157/85 06/24/19 20:53 65 147/83 06/24/19 20:38 67 149/88 06/24/19 20:08 98.6 F 60 20 131/67 06/24/19 19:53 71 142/78 06/24/19 19:41 68 142/73 06/24/19 19:39 69 127/70 06/24/19 18:38 61 163/93 06/24/19 18:23 68 153/85 06/24/19 18:21 56 L 37 L 06/24/19 18:20 21 L 06/24/19 18:10 58 L 64 L 06/24/19 18:08 68 151/90 06/24/19 17:58 68 165/86 06/24/19 17:55 80 64 L 06/24/19 17:54 51 L 06/24/19 17:38 134/82 06/24/19 17:28 62 135/74 06/24/19 17:18 106 H 100 06/24/19 17:17 67 94 06/24/19 17:13 80 100 06/24/19 17:08 83 100 06/24/19 17:03 77 100 06/24/19 16:58 72 100 06/24/19 16:53 72 100 06/24/19 16:50 68 112/79 06/24/19 16:48 98 H 100 06/24/19 16:43 83 100 06/24/19 16:38 73 100 06/24/19 16:33 76 100 06/24/19 16:28 79 100 06/24/19 16:23 75 100 06/24/19 16:18 85 71 L 06/24/19 16:13 74 100 06/24/19 16:08 68 100 06/24/19 16:03 73 100 06/24/19 15:58 71 100 06/24/19 15:53 66 100 06/24/19 15:51 64 153/86 06/24/19 15:48 71 100 06/24/19 15:43 70 100 06/24/19 15:38 66 100 06/24/19 15:33 66 99 06/24/19 15:28 76 100 06/24/19 15:23 68 100 06/24/19 15:18 66 100 06/24/19 15:13 68 99 06/24/19 15:08 69 100 06/24/19 15:03 66 99 06/24/19 15:00 97.9 F 16 06/24/19 14:58 69 100 06/24/19 14:53 68 100 06/24/19 14:50 66 144/79 06/24/19 14:48 71 98 06/24/19 14:43 70 99 06/24/19 14:38 75 100 06/24/19 14:33 67 98 06/24/19 14:28 75 100 06/24/19 14:23 67 98 06/24/19 14:18 66 98 06/24/19 14:13 65 100 06/24/19 14:08 67 99 06/24/19 14:03 68 99 06/24/19 13:58 68 99 06/24/19 13:53 69 98 06/24/19 13:50 70 148/71 06/24/19 13:48 72 99 06/24/19 13:43 67 99 06/24/19 13:38 67 99 06/24/19 13:33 71 99 06/24/19 13:28 75 100 06/24/19 13:23 74 100 06/24/19 13:18 81 100 06/24/19 13:13 70 100 06/24/19 13:08 81 100 06/24/19 13:03 72 14 100 06/24/19 12:58 72 100 06/24/19 12:53 66 100 06/24/19 12:48 64 100 06/24/19 12:43 67 100 06/24/19 12:38 69 100 06/24/19 12:33 100 H 100 06/24/19 12:28 75 100 06/24/19 12:23 73 100 06/24/19 11:50 68 140/91 06/24/19 10:50 67 132/79 06/24/19 10:04 66 142/78 06/24/19 09:50 75 157/102 06/24/19 08:50 72 143/91 06/24/19 08:41 65 100 06/24/19 08:36 81 100 06/24/19 08:31 73 100 06/24/19 08:26 75 100 06/24/19 08:21 70 100 06/24/19 08:17 68 93 06/24/19 08:16 66 100 06/24/19 08:11 73 100 06/24/19 08:06 72 14 135/72 100 06/24/19 08:01 55 L 86 06/24/19 07:56 66 86 06/24/19 07:52 85 06/24/19 07:51 74 99 06/24/19 07:50 69 135/72 06/24/19 07:46 71 100 06/24/19 07:42 71 90 06/24/19 07:41 73 100 06/24/19 07:36 66 100 Intake and Output 06/24/19 06/24/19 06/25/19 15:59 23:59 07:59 Intake Total 7487.653 0696.167 240 Output Total 1100 1400 800 Balance 559.899 -55.833 -560 Intake: IV 2746.111 4996.167 AMPICILLIN/NS 1 GM/50 ML 50 1 gm In 50 ml @ 100 mls/ hr IV Q4H [facility] Rx#: [id number] Lactated Ringers 1,000 ml 895.833 104.167 @ 125 mls/hr IV DIRECT [facility] Rx#:[id number] Left Upper arm 125 PITOCin/NS 20 UNIT/1000ML 1000 DRIP 20 units In 1,000 ml @ 125 mls/hr IV DIRECT [facility] Rx#:[id number] PITOCin/NS 30 UNIT/500ML 109.066 30 units In 500 ml @ 1 MILLIUNITS/MIN 1 mls/hr IV TITR [facility] Rx#:[id number] Oral 480 240 240 Output: Urine 1100 1400 800 Void 800 1400 800 Other: Total, Intake Amount 480 240 240 Total, Output Amount 800 300 800 # Voids Void 8 1 2 Estimated Blood Loss 400 - Exam Breasts: Present: normal Cardiovascular: Present: Regular rate, Normal S1 Lungs: Present: Clear to auscultation, Normal air movement Abdomen: Present: normal appearance, soft, normal bowel sounds. Absent: distention, tenderness, guarding Vulva: both: normal Uterus: Present: normal, firm, fundal height below umbilicus. Absent: bogginess, tenderness Extremities: Present: normal Deep Tendon Reflex Grade: Normal +2 Incision: Present: normal - Labs Labs: Abnormal lab results 06/24/19 06/24/19 Range/Units 11:56 20:30 Magnesium 5.00 H 4.80 H (1.7-2.3) mg/dL
[2019-06-25] MEDS: FEOSOL PO SCH ×2 (10:02→22:30)
[2019-06-25] MEDS: COLACE PO SCH ×2 (10:03→22:30)
[2019-06-25 10:54] LABS: Hematocrit 28.7 % (30.3-42.9); Hemoglobin 9.2 gm/dl (10.1-14.3)
[2019-06-25] MEDS ORDERED: DEPO-PROVERA (CONTRACEPTION) IM ONE (14:16)
[2019-06-25] MEDS ORDERED: BENADRYL PO PRN (15:09)
[2019-06-25] MEDS ORDERED: LANSINOH TP PRN (15:09)
[2019-06-25] MEDS ORDERED: TUCKS PAD TP PRN (15:09)
[2019-06-25] MEDS ORDERED: PHENERGAN PR PRN (15:09)
[2019-06-25] MEDS ORDERED: DULCOLAX PR PRN (15:09)
[2019-06-25] MEDS ORDERED: MILK OF MAGNESIA PO PRN (15:09)
[2019-06-25] MEDS ORDERED: TYLENOL PO PRN (15:09)
[2019-06-25] MEDS ORDERED: ZOFRAN IV PRN (15:09)
[2019-06-25] MEDS ORDERED: PHENERGAN PO PRN (15:09)
[2019-06-25] MEDS ORDERED: SODIUM CHLORIDE FLUSH SYRINGE 10 ML IV NR (16:00)
[2019-06-25] MEDS ORDERED: IBUPROFEN PO SCH (16:00)
[2019-06-25] MEDS ORDERED: M-M-R II VACCINE SUB-Q ONE (17:44)
[2019-06-26 04:37] LABS: Hematocrit 28.3 % (30.3-42.9)
[2019-06-26] MEDS: FEOSOL PO SCH ×2 (09:48→09:50)
[2019-06-26] MEDS: COLACE PO SCH (09:48)
--- NOTE | 2019-06-26 15:50 | Progress Note ---
Assessment and Plan PPD 2 s/p . S/p magnesium sulfate therapy. Now doing well. Patient ready for discharge on today. Subjective - Subjective Principal diagnosis: PPD 2 Interval history: Pt was induced for pre-eclampsia. SHe is ppd 2 from delivery. Blood pressures are now in normal range Patient reports: appetite normal, voiding normally, pain well controlled, ambulating normally Lester: doing well Objective - Vital Signs Latest vital signs: Vital Signs Temp Pulse Resp BP BP Pulse Ox 06/26/19 09:47 20 06/26/19 09:05 98.3 F 69 20 138/81 06/26/19 00:16 98.0 F 67 18 118/68 100 06/25/19 17:39 98.9 F 66 18 119/78 100 06/25/19 17:03 73 145/72 Intake and Output 06/26/19 06/26/19 06/26/19 06:59 14:59 22:59 Intake Total 720 260 Output Total 2 Balance 718 260 Intake: Oral 260 Intake, Free Water 720 Output: Urine 2 Void 2 Other: Total, Intake Amount 260 Total, Output Amount 2 # Voids Void 1 1 - Exam Breasts: Present: deferred Cardiovascular: Present: Regular rate, Normal S1, Normal S2 Lungs: Present: Clear to auscultation, Normal air movement Abdomen: Present: normal appearance, soft, normal bowel sounds Uterus: Present: normal, firm Extremities: Present: normal - Labs Labs: Abnormal lab results 06/26/19 Range/Units 03:20 Hgb 9.0 L (10.1-14.3) gm/dl Hct 28.3 L (30.3-42.9) %
--- NOTE | 2019-06-26 15:53 | Discharge Summary ---
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 Phone number called:: [phone] Additional Physician Instructions: limited care Primary care physician: NICKOLAS FELIX Hospitalization Reason for admission: induction of labor, other (Pre-eclampisa) Delivery: Episiotomy: none Discharge diagnosis: IUP at term delivered Stewart baby: male Condition at discharge: Good Disposition: DC-01 TO HOME OR SELFCARE Plan - Discharge Medications Prescriptions: Ibuprofen [Motrin] 800 mg PO Q8HR PRN #40 tablet PRN Reason: Pain, Moderate (4-6) - Provider Discharge Summary Activity: routine, no sex for 6 weeks, no heavy lifting 4 weeks, no strenuous exercise Diet: routine Instructions: routine Additional instructions: [] Smoking cessation referral if applicable(refer to patient education folder for contact #) [] Refer to [facility]'s [facility] Booklet Call your doctor immediately for: * Fever > 100.5 * Heavy vaginal bleeding ( >1 pad per hour) * Severe persistent headache * Shortness of breath * Reddened, hot, painful area to leg or breast * Drainage or odor from incision. * Keep incision clean and dry at all times and follow doctor's instructions regarding bathing/showering - Follow up plan Follow up: NICKOLAS FELIX MD [Primary Care Provider] - 6 Weeks
[2019-06-26] MEDS: IBUPROFEN PO SCH (16:10)
[2019-06-26] MEDS ORDERED: DEPO-PROVERA (CONTRACEPTION) IM ONE (16:17)
[2019-06-26 23:39] VITALS: BP 130/80
== END 2019-06-26 23:00 | disposition home or self-care (01) | DRG 775 ==
LOC: TRG 23:30 → LD 06-22 01:42 → OBSVTOIN 06-23 15:25 → OB 06-25 17:31
PROVIDERS: ADMIT Obstetrics & Gynecology; ATTEND Obstetrics & Gynecology
PROC: 3E0P7VZ Introduction of Hormone into Female Reproductive, Via Natural or Artificial Opening (ICD-10-PCS; principal; 2019-06-24)
PROC: 10E0XZZ Delivery of Products of Conception, External Approach (ICD-10-PCS; 2019-06-24)
PROC: 3E0234Z Introduction of Serum, Toxoid and Vaccine into Muscle, Percutaneous Approach (ICD-10-PCS; 2019-06-25)
DX: O42.013 Preterm premature rupture of membranes, onset of labor within 24 hours of rupture, third trimester (principal); O76 Abnormality in fetal heart rate and rhythm complicating labor and delivery; O14.94 Unspecified pre-eclampsia, complicating childbirth; Z37.0 Single live birth; O71.89 Other specified obstetric trauma; Z90.49 Acquired absence of other specified parts of digestive tract; Z83.3 Family history of diabetes mellitus; Z23 Encounter for immunization; Z79.899 Other long term (current) drug therapy; Z3A.36 36 weeks gestation of pregnancy
CPT/HCPCS: 36415; 59200; 76815; 76816; 76819; 80307; 81001; 82565; 83615; 83735; 84156; 84450; 84460; 84550; 85014; 85018; 85027; 86592; 86850; 86900; 86901; 88307; 90707; G0378; J0290; J0360; J0595; J0702; J1050; J2590; J3475; J7120

== ENCOUNTER 2019-08-11 07:22 | Day surgery (SDC) | payer OTHER ==
--- NOTE | 2019-08-10 14:52 | History and Physical Report ---
History of Present Illness Date of examination: 08/11/19 Chief complaint: Undesired Fertility History of present illness: Pt is a 39 year old who presents for surgical sterilization. She is aware of long acting methods of contraception and desires to proceed. 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 Family/Genetic History: diabetes, hypertension, cancer Social history: no significant social history - Obstetrical History : 10 Para: 8 Hx # Term Pregnancies: 8 Number of Pregnancies: 0 Spontaneous Abortions: 2 Induced : 0 Number of Living Children: 8 Medications and Allergies Allergies Allergy/AdvReac Type Severity Reaction Status Date / Time No Known Allergies Allergy Verified 08/09/19 12:55 Home Medications Medication Instructions Recorded Confirmed Last Taken Type No Known Home Medications [No 08/09/19 08/09/19 Unknown History Reported Home Medications] Review of Systems All systems: negative - Physical Exam Breasts: Positive: deferred Cardiovascular: Regular rate Lungs: Positive: Clear to auscultation Abdomen: Positive: soft Extremities: Positive: normal Results All other labs normal. Assessment and Plan A: Grandmultiparity Undesired Fertility P: Proceed with laparoscopic bilateral tubal ligation and other indicated procedures
[~2019-08-11 07:22] MED LIST: ceFAZolin/Water 2 GM/20 ML 2 GM/20 ML SYRINGE IV NR
[2019-08-11] MEDS: LACTATED RINGERS 1,000 ML IV SCH ×2 (08:30→10:12)
[2019-08-11 08:48] LABS: Hematocrit 34.7 % (30.3-42.9); Hemoglobin 11.2 gm/dl (10.1-14.3); Mean Corpuscular HGB Conc 32 % (30-34); Mean Corpuscular Volume 74 fl (79-97); Platelet Count 297 K/mm3 (140-440); Red Blood Count 4.67 M/mm3 (3.65-5.03); Red Cell Distribution Width 19.8 % (13.2-15.2)
[2019-08-11] MEDS ORDERED: BUPIVACAINE/PF (0.5%) 5 MG/1 ML 30 ML VIAL INFILTRATI ONE ×2 (09:02→10:53)
--- NOTE | 2019-08-11 09:05 | Anesthesia Day of Surgery ---
Anesthesia Day of Surgery - Day of Surgery Patient Examined: Yes Patient H&P Reviewed: Yes Patient is NPO: Yes
[2019-08-11] MEDS ORDERED: fentaNYL 100 MCG/2 ML INJ IV NR (09:06)
--- NOTE | 2019-08-11 09:06 | Anesthesia Consultation ---
Anesthesia Consult and Med Hx Date of service: 08/11/19 - Airway Anesthetic Teeth Evaluation: Good ROM Head & Neck: Adequate Mental/Hyoid Distance: Adequate Mallampati Class: Class II Intubation Access Assessment: Good - Pulmonary Exam CTA: Yes - Cardiac Exam Cardiac Exam: RRR - Pre-Operative Health Status ASA Pre-Surgery Classification: ASA2 Proposed Anesthetic Plan: General (Smoker , elevated BP since for GA) - Pulmonary Hx Smoking: Yes Hx Asthma: No COPD: No Hx Pneumonia: No - Cardiovascular System Hx Hypertension: No - Central Nervous System Hx Seizures: No Hx Psychiatric Problems: No - Endocrine Hx Renal Disease: No Hx End Stage Renal Disease: No Hx Hypothyroidism: No Hx Hyperthyroidism: No - Hematic Hx Anemia: No Hx Sickle Cell Disease: No - Other Systems Hx Alcohol Use: No Hx Cancer: No
[2019-08-11] MEDS ORDERED: ONDANSETRON 4 MG/2 ML INJ IV PRN (09:07)
[2019-08-11] MEDS ORDERED: MIDAZOLAM 2 MG/2 ML INJ ONE (09:07)
[2019-08-11] MEDS ORDERED: LIDOCAINE MPF (2%) 20 MG/1 ML VIAL 5 ML ONE (09:13)
[2019-08-11] MEDS ORDERED: fentaNYL 250 MCG/5 ML INJ ONE (09:13)
[2019-08-11] MEDS ORDERED: dexAMETHasone 20 MG/5 ML VIAL ONE (09:13)
[2019-08-11] MEDS ORDERED: PROPOFOL 200 MG/20 ML VIAL IV ONE (09:13)
[2019-08-11] MEDS ORDERED: ROCURONIUM 50 MG/5 ML INJ IV ONE (09:13)
[2019-08-11] MEDS ORDERED: GLYCOPYRROLATE 0.4 MG/2 ML INJ ONE ×2 (09:13→09:30)
[2019-08-11] MEDS ORDERED: NEOSTIGMINE 10MG/10 ML INJ MDV ONE (09:13)
[2019-08-11] MEDS ORDERED: PHENYLEPHRINE/NS 1,000 MCG/10 ML SYRINGE (OR USE) IV ONE (09:13)
[2019-08-11] MEDS ORDERED: CELECOXIB 200 MG CAP ONE (09:17)
[2019-08-11] MEDS ORDERED: MIDAZOLAM 2 MG/2 ML INJ IV NR (10:00)
[2019-08-11] MEDS ORDERED: CELECOXIB 200 MG CAP PO NR (10:00)
[2019-08-11] MEDS ORDERED: GABAPENTIN 300 MG CAP PO NR (10:00)
[2019-08-11] MEDS ORDERED: SODIUM CHLORIDE 0.9% IRR 1,000 ML BOTTLE IR ONE (10:54)
[2019-08-11] MEDS ORDERED: ESMOLOL 100 MG/10 ML INJ IV ONE ×3 (11:02→11:06)
--- NOTE | 2019-08-11 11:33 | Operative Report ---
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 Counts correct x 2 Disposition: Stable to PACU Indication for Procedure: This pt is a 39 year old -[place] presents for surgical sterilization. She is aware of long acting reversible contraceptives as well as tubal ligation and she desires to proceed with bilateral salpingectomy. Operation In Detail: After the risks, benefits, complications and alternatives were explained to the patient, she gave informed consent for the procedure. She was then taken to the operating room and placed in the dorsal supine position with her IV noted to be running well and SCDs in place and functioning. General endotracheal anesthesia was induced without difficulty. The patient was then placed in the dorsal lithotomy position and prepped and draped in a normal sterile fashion. A time out was then performed. An exam under anesthesia revealed a small mobile anteverted uterus. The bladder was then drained of 75 mL of clear urine. A bi-valve speculum was placed in the vagina to visualize the cervix. A single tooth tenaculum was placed on the anterior lip of the cervix for traction. The uterus was sounded to 10 cm. A uterine manipulator was then placed. The single tooth tenaculum and speculum were removed from the vagina atraumatically. The surgeon's gloves were then changed. Attention was then turned to entry into the abdominal cavity. A 5 mm infraumbilical incision was made with an 11 blade. The skin was grasped on either side of the umbilicus and tented up. The Veres needle was placed into the peritoneal cavity, confirmed with a saline drop test. The abdomen was then insufflated with CO2 gas to a pressure of 15 mmHg. A 5 mm Visiport trocar was then placed. An anatomic survey was then performed with findings as indicated above. A second trocar site was created 4 cm superior to the pubic symphysis in the midline measuring 8 mm. An 8 mm trocar was then placed under direct visualization. A third 5 mm trocar was placed in the LLQ under direct visualization. The patient was placed in the Trendelenburg position. The uterus was elevated, and each fallopian tube was followed out to the fimbriae, grasped with a grasper for elevation, and excised using a 5 mm Ligasure device. Both fallopian tubes were removed through the 8 mm port and sent to pathology. At this time, all instruments were removed from the abdominal cavity. The pneumoperitoneum was released and the trocars were removed. The incisions were then infiltrated with half percent Marcaine. The incisions were then reapproximated with 4-0 Vicryl in a subcuticular fashion. They were then covered with skin glue. All instruments were then removed atraumatically from the vagina. At this time the procedure was ended. The patient was placed into the dorsal supine position and extubated without difficulty. She was subsequently taken to the PACU in stable condition. All instrument, needle and lap counts were correct 2. During the procedure, hypertension was noted as documented in anesthesia record. She will be started on an antihypertensive medication.
--- NOTE | 2019-08-11 11:37 | Short Stay Summary ---
Short Stay Documentation Date of service: 08/11/19 - History H&P: dictated Social history: no significant social history - Allergies and Medications Current Medications: Allergies No Known Allergies Allergy (Verified 08/09/19 12:55) Home Medications Medication Instructions Recorded Confirmed Last Taken Type No Known Home Medications [No 08/09/19 08/09/19 Unknown History Reported Home Medications] Active Medications Celecoxib (Celebrex) 200 mg PO PREOP NR Stop: 08/11/19 16:00 Last Admin: 08/11/19 08:28 Dose: 200 mg Documented by: Fentanyl (Sublimaze) 100 mcg IV ONCE NR Stop: 08/11/19 16:00 Gabapentin (Gabapentin) 300 mg PO PREOP NR Stop: 08/11/19 16:00 Last Admin: 08/11/19 08:28 Dose: 300 mg Documented by: Hydromorphone HCl (Dilaudid) 0.5 mg IV Q10MIN PRN PRN Reason: Pain , Severe (7-10) Stop: 08/11/19 22:00 Lactated Ringer's (Lactated Ringers) 1,000 mls @ 75 mls/hr IV DIRECT SUMI Last Admin: 08/11/19 10:12 Dose: 75 mls/hr Documented by: Cefazolin Sodium (Ancef/Sterile Water 2 Gm/20 Ml) 2 gm in 20 mls @ 80 mls/hr IV PREOP NR; Protocol Stop: 08/11/19 23:00 Midazolam HCl (Versed) 2 mg IV PREOP NR Stop: 08/11/19 23:59 Last Admin: 08/11/19 08:30 Dose: 2 mg Documented by: Ondansetron HCl (Zofran) 4 mg IV ONCE PRN PRN Reason: Nausea And Vomiting Stop: 08/11/19 16:00 - Physical exam Breasts: deferred - Brief post op/procedure progress note Date of procedure: 08/11/19 Pre-op diagnosis: Grandmultiparity, Undesired Fertility Post-op diagnosis: same Procedure: Laparoscopic bilateral salpingectomy Anesthesia: GETA Findings: 1) Anteverted uterus that sounds to 10 cm 2) Normal appearing tubes and ovaries Surgeon: NICKOLAS FELIX Sql Database Developer: SANGEETA INMAN Estimated blood loss: minimal (15 mL) Pathology: list (bilateral tubes to pathology) Specimen disposition: to lab Condition: stable - Hospital course Hospital course: Pt underwent laparoscopic bilateral salpingectomy which she tolerated well. Her postoperative course was complicated by hypertension and she was started on labetalol 200mg BID. She was observed in the PACU until she met discharge criteria. She will follow up in 1 week for a blood pressure check. - Disposition Condition at discharge: Stable Disposition: DC-01 TO HOME OR SELFCARE - Discharge Diagnoses (1) Encounter for sterilization Status: Acute (2) Hypertension Status: Acute Qualifiers: Hypertension type: unspecified Qualified Code(s): I10 - Essential (primary) hypertension Short Stay Discharge Plan Activity: other (Nothing in vagina, no tub baths for 4 wks ) Weight Bearing Status: Full Weight Bearing Diet: regular Wound: keep clean and dry Follow up with: RUMA YOST MD [Primary Care Provider] - 7 Days NICKOLAS FELIX MD [Staff Physician] - 7 Days Prescriptions: labetaloL [Labetalol 200mg TAB] 200 mg PO BID #60 tablet Ibuprofen [Motrin] 800 mg PO Q8HR PRN #30 tablet PRN Reason: Pain, Moderate (4-6) oxyCODONE /ACETAMINOPHEN [Percocet 5/325] 1 tab PO Q6HR PRN #30 tablet PRN Reason: Pain
[2019-08-11] MEDS: HYDROmorphone 1 MG/1 ML INJ IV PRN ×2 (11:49→12:08)
[2019-08-11 13:09] VITALS: BP 143/90
--- NOTE | 2019-08-11 14:15 | Post Anesthesia Evaluation ---
- Post Anesthesia Evaluation Patient Participated: Yes Airway Patent: Yes Stable Respiratory Function: Yes Nausea/Vomiting: No Temp > 96.8F: Yes Pain Manageable: Yes Adequeate Hydration: Yes Anesthesia Complications: No Block Receding Appropriately: Not Applicable Patient on Ventilator: No
== END 2019-08-11 12:58 | disposition home or self-care (01) ==
LOC: OR 07:22
PROVIDERS: ATTEND Obstetrics & Gynecology
DX: Z30.2 Encounter for sterilization (principal); I10 Essential (primary) hypertension; F17.210 Nicotine dependence, cigarettes, uncomplicated; Z64.1 Problems related to multiparity; Z79.899 Other long term (current) drug therapy; Z90.49 Acquired absence of other specified parts of digestive tract; Z83.3 Family history of diabetes mellitus; Z80.8 Family history of malignant neoplasm of other organs or systems; Z98.890 Other specified postprocedural states
CPT/HCPCS: 36415; 58661; 81025; 85027; 86850; 86900; 86901; 88302; J0690; J1100; J1170; J2250; J2370; J2405; J2704; J2710; J3010; J7120